=== PATIENT | female | born 1970 | race Two or more races ===

== ENCOUNTER 2018-07-28 09:26 | Day surgery (SDC) | payer OTHER ==
[~2018-07-28] VITALS: Ht 154.9 cm; Wt 55.3 kg
[2018-07-28] MEDS ORDERED: LACTATED RINGERS 1,000 ML IV SCH (09:58)
[2018-07-28] MEDS ORDERED: fish oil (10:04)
[2018-07-28] MEDS ORDERED: METF850T PO (10:04)
[2018-07-28] MEDS ORDERED: vitamin b12 (10:04)
[2018-07-28] MEDS ORDERED: PLEASE ENTER HEIGHT AND WEIGHT MC SCH (10:30)
[2018-07-28 10:47] LABS: HCG UR SG 1.014 (1.003-1.030)
[2018-07-28] MEDS ORDERED: PROPOFOL 50 ML ONE (10:52)
[2018-07-28] MEDS ORDERED: MEPERIDINE/PF 25MG/0.5ML IVPush PRN (13:00)
[2018-07-28] MEDS ORDERED: PROMETHAZINE 25 MG/ML, 1ML IV PRN (13:00)
[2018-07-28] MEDS ORDERED: ONDANSETRON 2MG/ML, 2ML IV PRN (13:00)
[2018-07-28] MEDS ORDERED: SCOPOLAMINE PATCH, 1.5MG PATCH.TD72 TD PRN (13:00)
[2018-07-28] MEDS ORDERED: ALBUTEROL/IPRATROPIUM 2.5MG/0.5MG, 3 ML NPPB PRN (13:00)
[2018-07-28] MEDS ORDERED: FENTANYL PF 100 MCG/2ML IV PRN (13:00)
[2018-07-28] MEDS ORDERED: MIDAZOLAM 1 MG/ML, 2ML IV PRN (13:00)
[2018-07-28] MEDS ORDERED: METOPROLOL 1 MG/ML, 5ML IV PRN (13:00)
[2018-07-28] MEDS ORDERED: OXYcodone 5 MG/5 ML ORAL.SOL UDC PO PRN (13:00)
[2018-07-28] MEDS ORDERED: FENTANYL PF 100 MCG/2ML ONE (13:29)
[2018-07-28] MEDS ORDERED: OXYcodone 5 MG/5 ML ORAL.SOL UDC ONE (13:42)
== END 2018-07-28 15:15 | disposition home or self-care (01) ==
LOC: OUT 09:26
PROVIDERS: ATTEND Internal Medicine Geriatric Medicine
DX: K86.89 Other specified diseases of pancreas (principal); R59.1 Generalized enlarged lymph nodes; I25.10 Atherosclerotic heart disease of native coronary artery without angina pectoris; E11.22 Type 2 diabetes mellitus with diabetic chronic kidney disease; I12.0 Hypertensive chronic kidney disease with stage 5 chronic kidney disease or end stage renal disease; N18.6 End stage renal disease; K76.89 Other specified diseases of liver; K80.20 Calculus of gallbladder without cholecystitis without obstruction; D50.9 Iron deficiency anemia, unspecified; Z98.890 Other specified postprocedural states; Z79.4 Long term (current) use of insulin
CPT/HCPCS: 43242; 81025; 82962; 88172; 88173; 88177; 88307; J2704; J3010; J7120